=== PATIENT | female | born 1995 | race Hispanic/Latino ===

== ENCOUNTER 2019-02-01 01:14 | Emergency (ER) | payer SELFPAY ==
[~2019-02-01] VITALS: Ht 165.1 cm; Wt 117.9 kg
[2019-02-01] MEDS ORDERED: KETOROLAC TROMETHAMINE 60 MG/2 ML VIAL IM ONE (01:30)
[2019-02-01] MEDS ORDERED: HYDROCODONE/APAP 10MG-325MG TAB PO ONE (01:30)
[2019-02-01] MEDS ORDERED: HYDROCODONE/APAP 10MG-325MG TAB ONE (01:34)
[2019-02-01] MEDS ORDERED: KETOROLAC TROMETHAMINE 60 MG/2 ML VIAL ONE (01:34)
[2019-02-01] MEDS ORDERED: NEOMYCIN/POLYMYXIN/BACITRACIN 15 GM TUBE TOP ONE (01:45)
[2019-02-01] MEDS ORDERED: NEOSTIGMINE 1 MG/ML 10ML VIAL ONE (01:46)
== END 2019-02-01 02:05 | disposition home or self-care (01) ==
LOC: ER 01:14
DX: S80.812A Abrasion, left lower leg, initial encounter (principal); L03.116 Cellulitis of left lower limb; V28.0XXA Motorcycle driver injured in noncollision transport accident in nontraffic accident, initial encounter; Y92.410 Unspecified street and highway as the place of occurrence of the external cause
CPT/HCPCS: 96372; 99283; J1885; J2710

== ENCOUNTER 2019-07-02 16:28 | Emergency (ER) | payer SELFPAY ==
[~2019-07-02] VITALS: Ht 165.1 cm; Wt 117.9 kg
[2019-07-02 17:21] VITALS: BP 141/79
== END 2019-07-02 17:25 | disposition home or self-care (01) ==
LOC: ER 16:28
DX: L50.0 Allergic urticaria (principal)
CPT/HCPCS: 99282